=== PATIENT | male | born 1975 | race Caucasian/White ===

== ENCOUNTER 2021-03-09 14:33 | Emergency (ER) | payer MEDICAID ==
[~2021-03-09] VITALS: Ht 177.8 cm; Wt 88.0 kg
[2021-03-09] MEDS ORDERED: SODIUM CHLORIDE 0.9% 1,000 ML IV ONE (15:30)
[2021-03-09 15:55] LABS: BASOPHILS % 0.3 % (0.0-2.0); EOSINOPHILS % 1.6 % (0.0-5.0); HEMATOCRIT. 42.1 % (42.0-52.0); HEMOGLOBIN. 14.5 g/dL (14.0-18.0); LYMPHOCYTES % 13.6 % (20.0-50.0); MEAN CORPUSCULAR HEMOGLOBIN 30.2 pg (28.0-32.0); MEAN CORPUSCULAR VOLUME 87.7 fL (80.0-94.0); MEAN PLATELET VOLUME 8.6 fl (7.4-10.4); NEUTROPHILS % 79.5 % (40.0-76.0); PLATELET 228 x1000/uL (130-400); RED CELL DISTRIBUTION WIDTH 13.4 % (11.6-14.6)
[2021-03-09 15:57] LABS: CHLORIDE 102 mEq/L (98-107)
[2021-03-09 19:44] VITALS: BP 116/73
== END 2021-03-09 19:45 | disposition home or self-care (01) ==
LOC: ER 14:33
DX: E86.0 Dehydration (principal); R55 Syncope and collapse; F20.9 Schizophrenia, unspecified; F17.210 Nicotine dependence, cigarettes, uncomplicated
CPT/HCPCS: 36415; 71045; 80053; 83880; 84484; 85025; 93005; 96360; 96361; 99285; J7030

== ENCOUNTER 2021-05-13 18:07 | Emergency (ER) | payer MEDICAID ==
[~2021-05-13] VITALS: Ht 170.2 cm; Wt 70.0 kg
[2021-05-13] MEDS ORDERED: SODIUM CHLORIDE 0.9% 1,000 ML IV ONE (18:30)
[2021-05-13 18:45] LABS: BASOPHILS % 0.5 % (0.0-2.0); EOSINOPHILS % 1.9 % (0.0-5.0); HEMATOCRIT. 44.1 % (42.0-52.0); LYMPHOCYTES % 31.3 % (20.0-50.0); MEAN CORPUSCULAR HEMOGLOBIN 30.1 pg (28.0-32.0); MEAN CORPUSCULAR VOLUME 88.3 fL (80.0-94.0); MEAN PLATELET VOLUME 8.1 fl (7.4-10.4); MONOCYTES % 8.7 % (2.0-8.0); NEUTROPHILS % 57.6 % (40.0-76.0); PLATELET 281 x1000/uL (130-400); RED BLOOD CELL COUNT 4.99 mill/uL (4.7-6.1); RED CELL DISTRIBUTION WIDTH 13.2 % (11.6-14.6)
[2021-05-13 18:51] LABS: CHLORIDE 109 mEq/L (98-107)
[2021-05-13 22:20] VITALS: BP 114/75
== END 2021-05-13 23:07 | disposition home or self-care (01) ==
LOC: ER 18:07
DX: R55 Syncope and collapse (principal); Z86.59 Personal history of other mental and behavioral disorders
CPT/HCPCS: 36415; 71045; 80053; 84484; 85025; 93005; 96360; 96361; 99285; J7030